=== PATIENT | male | born 1990 | race Caucasian/White ===

== ENCOUNTER 2020-10-16 13:58 | Emergency (ER) | payer OTHER ==
[~2020-10-16] VITALS: Ht 177.8 cm; Wt 70.3 kg
[2020-10-16 14:18] VITALS: BP 132/74
== END 2020-10-16 15:42 | disposition home or self-care (01) ==
LOC: M.ERS 13:58
DX: U07.1 COVID-19 (principal); R53.83 Other fatigue; J34.89 Other specified disorders of nose and nasal sinuses; Z90.49 Acquired absence of other specified parts of digestive tract